=== PATIENT | female | born 1940 ===

== ENCOUNTER 2018-09-28 13:26 | Emergency (ER) | payer OTHER ==
[~2018-09-28] VITALS: Ht 165.1 cm; Wt 74.8 kg
[2018-09-28] MEDS ORDERED: VERAPAMIL ER240 MG PO (14:02)
[2018-09-28] MEDS ORDERED: COZAAR25 MG PO (14:03)
[2018-09-28] MEDS ORDERED: LANTUS SOL100 UNIT/1 SQ (14:03)
[2018-09-28] MEDS ORDERED: PLAVIX75 MG PO (14:04)
[2018-09-28] MEDS ORDERED: SIMVASTATIN5 MG PO (14:04)
== END 2018-09-28 21:24 | disposition home or self-care (01) ==
LOC: ER 13:26
DX: R19.7 Diarrhea, unspecified (principal)